=== PATIENT | female | born 1955 | race African-American/Black ===

== ENCOUNTER 2020-12-14 11:17 | Emergency (ER) | payer MEDICARE ==
[~2020-12-14] VITALS: Ht 157.5 cm; Wt 79.4 kg
[2020-12-14 11:52] LABS: ABSOLUTE NEUTROPHILS 7.1 thou/uL (1.4-8.2); BASOPHILS 0.5 % (0.0-2.0); EOSINOPHILS 0.5 % (0.0-3.0); HEMATOCRIT 40.6 % (37.0-47.0); HEMOGLOBIN 13.2 gm/dL (12.0-15.0); LYMPHOCYTES 14.8 % (24.0-44.0); MCH 30.3 pg (26.0-34.0); MCHC 32.5 g/dL (28.0-37.0); MCV 93.3 fL (80.0-100.0); MONOCYTES 8.4 % (1.0-8.0); PLATELET COUNT 192 thou/uL (150-400); POLYS 75.8 % (36.0-66.0); RBC 4.36 mil/uL (4.20-5.00); RDW 13.5 % (10.5-14.5); WBC 9.4 thou/uL (4.0-11.0)
[2020-12-14 11:59] LABS: ANION GAP 12 mmol/L (7-16); BUN 17 mg/dL (7-18); CALCIUM 9.3 mg/dL (8.5-10.1); CHLORIDE 105 mmol/L (98-107); CO2 28 mmol/L (21-32); GLUCOSE 141 mg/dL (74-106); POTASSIUM 3.1 mmol/L (3.5-5.1); SODIUM 145 mmol/L (136-145)
[2020-12-14 12:09] LABS: ALBUMIN 4.1 g/dL (3.4-5.0); SGOT 12 U/L (15-37); SGPT 19 U/L (14-59); TOTAL BILIRUBIN 0.5 mg/dL (0.2-1.0); TOTAL PROTEIN 7.6 g/dL (6.4-8.2); TROPONIN-I <0.06 ng/mL (<0.06)
[2020-12-14 13:30] VITALS: BP 132/87
--- NOTE | 2020-12-15 07:06 | EKG ---
[facility] [employer] [place] [address] ELECTROCARDIOGRAM REPORT Name: MEENU MONTGOMERY Room #: [facility] ([place], [place])#: [id number] Admission: 12/14/20 Attend Phys: Discharge: 12/14/20 Date of : 51 Report #: [id number] [facility] ED Test Date: 2020-12-14 Test Time: 11:21:20 Pat Name: MEENU MONTGOMERY Department: Room: Gender: F [employer] Hel[employer]: SARA : 1955 Requested By: Luis Ponce Order Number: [id number] MD: Monico Calhoun Measurements Intervals Donner Rate: 80 P: 29 ND: 155 QRS: -32 QRSD: 96 T: 0 QT: 383 QTc: 442 Interpretive Statements Sinus rhythm Low voltage, precordial leads Abnormal R-wave progression, late transition Left ventricular hypertrophy No previous ECG available for comparison Electronically Signed On 12-15-2020 7:06:15 CDT by Monico Calhoun [email or web address] <ELECTRONICALLY SIGNED> By: Monico Calhoun MD, [facility] 12/15/20 07 112 [id number] Monico Calhoun MD, FACC /EPI
== END 2020-12-14 13:32 | disposition home or self-care (01) ==
LOC: ER 11:17
PROVIDERS: Emergency Medicine
DX: R07.89 Other chest pain (principal)